=== PATIENT | female | born 1990 | race Caucasian/White ===

== ENCOUNTER 2018-02-04 20:19 | Inpatient (IN) | payer OTHER ==
[~2018-02-04] VITALS: Ht 175.3 cm; Wt 54.4 kg
[2018-02-04] MEDS ORDERED: LOPERAMIDE HCL 2 MG CAPSULE PO PRN ×2 (22:45)
[2018-02-04] MEDS ORDERED: ACETAMINOPHEN 325 MG TABLET PO PRN (22:45)
[2018-02-04] MEDS ORDERED: MAG HYDROX/AL HYDROX/SIMETH 30 ML LIQUID UDC PO PRN (22:45)
[2018-02-04] MEDS ORDERED: LORAZEPAM 2 MG/1 ML VIAL IM PRN (22:45)
[2018-02-04] MEDS ORDERED: DICYCLOMINE HCL 20 MG TABLET PO PRN (22:45)
[2018-02-04] MEDS ORDERED: ONDANSETRON ODT 4 MG TAB.RAPDIS SL PRN (22:45)
[2018-02-04] MEDS ORDERED: diphenhydrAMINE 50 MG CAPSULE PO PRN (22:45)
[2018-02-04] MEDS ORDERED: THIAMINE HCL 200 MG/2 ML VIAL IM ONE (22:45)
[2018-02-04] MEDS ORDERED: NICOTINE 14 MG/24HR PATCH TD PRN (22:45)
[2018-02-04] MEDS ORDERED: MIRALAX 17 GM POWD.PACK PO PRN (22:45)
[2018-02-04] MEDS ORDERED: CLONIDINE HCL 0.1 MG TABLET PO PRN (22:45)
[2018-02-04] MEDS ORDERED: ONDANSETRON 4 MG/2 ML VIAL IM PRN (22:45)
[2018-02-04] MEDS ORDERED: MAGNESIUM HYDROXIDE 30 ML LIQUID UDC PO PRN (22:45)
--- NOTE | 2018-02-04 23:10 | NUR ---
Intake Assessment Pt is a 27 y/o female seen at intake, A&O x 3, and presents with anxiety, sweats/chills, moderate intoxication with flushed face, disheveled hair, anxiety, agitation and restlessness. Pt is ambulatory with unsteady gait. Vital signs: BP 112/82, HR 90, RR 18, T 98.0, SaO2 94%, Pain 0/10. Pt claims NKA, NKDA, NKFA. Pt denies seizure history, SI/HIs. Home meds reviewed, Unit policy on return/destruction of meds on d/c explained on controlled substances may not be returned, Pt verbalized understanding. Pt reports a 4 year and a 1.5 year period of sobriety, last ending approximately 1 year ago, with last week consuming 750 mls wine/Vodka and 1mg Xanax PO per day. Pt claims Hx of depression, anxiety, panic disorder , ADD, and chronic UTIs. Educated pt on rules and policies of the unit including handling of contraband and taking vital signs Q4H. Will continue care of patient upon arrival on unit.
[2018-02-04 23:19] LABS: BASOPHILS % (AUTO) 0.4 % (0.0-2.0); EOSINOPHILS % (AUTO) 0.4 % (0.0-7.0); HEMATOCRIT 46.3 % (31.2-41.9); HEMOGLOBIN 16.3 g/dL (10.9-14.3); LYMPHOCYTES # (AUTO) 1.2 K/uL (20.0-40.0); LYMPHOCYTES % (AUTO) 18.7 % (20.5-51.5); MEAN CORPUSCULAR HEMOGLOBIN 32.6 uug (24.7-32.8); MEAN CORPUSCULAR HGB CONC 35 g/dL (32.3-35.6); MEAN CORPUSCULAR VOLUME 92.9 fL (75.5-95.3); MONOCYTES # (AUTO) 0.6 K/uL (2.0-10.0); NEUTROPHILS # (AUTO) 4.4 K/uL (1.8-8.9); NEUTROPHILS % (AUTO) 70.5 % (38.5-71.5); PLATELET COUNT (AUTO) 238 K/uL (179-408); RED BLOOD CELL COUNT(AUTO) 4.99 MIL/uL (3.63-4.92); WHITE BLOOD COUNT (AUTO) 6.2 K/uL (3.8-11.8)
[2018-02-04 23:35] LABS: BILIRUBIN,TOTAL 0.6 mg/dL (0.2-1.0); CREATININE 0.9 mg/dL (0.6-1.3); POTASSIUM 4.8 mmol/L (3.5-5.1)
[2018-02-04 23:43] LABS: THYROID STIMULATING HORMONE 1.426 mIU/mL (0.358-3.740)
[2018-02-05] VITALS: BP 111/81
--- NOTE | 2018-02-05 | NUR ---
Admission Note Received on unit 23:28 Pt is a 27 y/o female who is being admitted for medically supervised withdrawal/detox from ETOH and Xanax. The patient is intoxicated and is not currently experiencing withdrawal. Pt appears disheveled and unkempt. Pt has a depressed, worried/sad mood, eye contact avoidant at times. She is A&O x 4 with low speech, appears lethargic. Eye contact is intermittent and avoidant. Pt is disheveled. Pt denies a hx of withdrawal induced seizures. VSs on unit are BP 111/81, HR 87, RR 18, T 97.7 and SaO2 94%. HR is regular, RR even and nonlabored, lung sounds clear in all quadrants, bowel sounds active all quadrants Pt states current substance use as follows: 1.ETOH: 750 mls mostly wine, sometimes Vodka, per day PO for the past week. Pt states she first drank at age 13 in 2003. Last ingested approximately 2130 on 02/04/18 2.Xanax: 1mg/day PO for the past year, last ingested approximately 2130 on 02/04/18. Pt states she has NKDA, wishes to be a full code, and follows a regular diet at home. Previous Medical Hx includes: 1.ADD: dx [address] Washington [place], last seen 12/2017 for evaluation. 2.Anxiety: dx [address] Washington [place], last seen 12/2017 for evaluation. 3.Panic disorder: dx [address] Washington [place], last seen 12/2017 for evaluation. Hospitalized in 2005. 4.Chronic UTIs: Diagnose in 1993 at age 3, last seen approximately 01/2017 for evaluation. Home medications listed include: 1.Xanax, 1mg daily PO For chronic panic attacks. 2.Adderal, 2mg daily PO for ADD. 3.Gabapentin 600mg daily PO for anxiety. 4.Trazadone 50mg daily PO for insomnia. She states she is seeking treatment today because her addiction is not serving her. Pt states her father, now at age 60 of [place], was probably and alcoholic, but functional. She has accumulated some sober time prior, with 4 years sober her longest period, and ending 1.5 years clean 1 year ago. 5 years ago she spent 45 days at [facility] in approximately 2012. Over the past year she has with her in 04/2017, changed jobs, and lost a very good friend to . She states she does have support from family and friends. Pt oriented to room and educated patient about smoking and unit rules, how to use call light, pt verbalized understanding. Safety measures in place, side rails up x 2 with padding, bed locked and in lowest position, Call light within reach. Admitting orders have been places.
[2018-02-05] MEDS ORDERED: DEXT10TA19 PO (00:02)
[2018-02-05] MEDS ORDERED: GABA600T2 PO (00:02)
[2018-02-05] MEDS ORDERED: TETR15DR97 OP (00:02)
[2018-02-05] MEDS ORDERED: ALPR0.25 PO (00:02)
[2018-02-05] MEDS ORDERED: ONDA4TAB11 PO (00:02)
[2018-02-05] MEDS ORDERED: TRAZ-144 PO (00:02)
[2018-02-05 01:05] LABS: *URINE HCG, QUAL NEGATIVE (NEGATIVE)
[2018-02-05 01:13] LABS: *AMPHETAMINE, URINE NEGATIVE (NEGATIVE); *BARBITURATE, URINE NEGATIVE (NEGATIVE); *CANNABINOID, URINE NEGATIVE (NEGATIVE); *COCCAINE, URINE NEGATIVE (NEGATIVE); *OPIATE, URINE NEGATIVE (NEGATIVE); *PHENCYCLIDINE SCREEN,URINE NEGATIVE (NEGATIVE)
[2018-02-05] MEDS ORDERED: TRAZODONE 50 MG TABLET PO ONE (01:15)
[2018-02-05] MEDS ORDERED: GABAPENTIN 300 MG CAPSULE PO ONE (01:15)
[2018-02-05] MEDS: LORAZEPAM 1 MG TABLET PO PRN ×3 (01:30→20:36)
--- NOTE | 2018-02-05 01:30 | NUR ---
PRN Med Ativan 2mg PO given for CIWA of 17. Will continue to monitor, reassessing in 1 hour, and promptly attending to all pt needs.
--- NOTE | 2018-02-05 01:30 | NUR ---
PRN Med Nicotine Gum 4mg PO given for
[2018-02-05] MEDS: NICOTINE POLACRILEX 4 MG GUM-PK OF TEN BC PRN ×4 (01:37→20:36)
--- NOTE | 2018-02-05 01:37 | NUR ---
PRN Med Reassessment Nicotine Gum 4mg PO given 1 hour prior for temporary smoking cessation. At present patient sleeping, RR 14, even and nonlabore. Med effective
--- NOTE | 2018-02-05 01:37 | NUR ---
PRN Med Nicotine Gum 4mg PO given for temporary smoking cessation. Will continue to monitor, promptly attending to all pt needs.
--- NOTE | 2018-02-05 02:30 | NUR ---
PRN Med Reassessment Ativan 2mg PO given 1 hour prior for CIWA 17. At present patient sleeping, RR 14 even and nonlabored. Med effective.
--- NOTE | 2018-02-05 04:00 | NUR ---
VS's CIWA Deferred 0400 VS's and CIWA deferred r/t pt sleeping/refused. RR 14, even and nonlabored. Will continue to monitor patient for shift until endorsement, promptly attending to all pt needs.
--- NOTE | 2018-02-05 07:41 | NUR ---
Start of shift note; Received report from night nurse. Patient 27 year old female admitted on 02/04/18 for ETOH/Benzodiazepine withdrawals. Patient was placed on PRN Ativan. Patient is currently asleep with respirations of 18. Patient received PRN Ativan and PRN Nicotine gum, noted to be effective. All safety measures secured. Will continue to monitor patient.
--- NOTE | 2018-02-05 07:43 | NUR ---
End of Shift Pt is a 27 y/o female admitted 02/04/18 for medically managed withdrawal/detox from ETOH, with Xanax, and Adderal . PRNs for shift Included Nicotine Gum 4mg PO and Ativan 2mg PO for a CIWA of 15 at 20:00. Pt slept for 4 hours, had 1091 input, and 1 void with 0 BMs Will continue to monitor pt until endorsement, promptly attending to all pt needs.
[2018-02-05 08:00] VITALS: BP 103/67
[2018-02-05] MEDS: THIAMINE HCL 100 MG TABLET PO SCH (08:36)
[2018-02-05] MEDS: FOLIC ACID 1 MG TABLET PO SCH (08:36)
[2018-02-05] MEDS: MULTIVITAMINS,THERAPEUTIC TABLET PO SCH (08:36)
[2018-02-05] MEDS: GABAPENTIN 300 MG CAPSULE PO SCH ×3 (08:36→20:36)
--- NOTE | 2018-02-05 08:36 | NUR ---
PRN MEDICATION; Patient is AOX4, complaining of nausea, stomach cramps, sweats and anxiety. PRN Zofran 4mg ODT given for nausea. Will continue to monitor patient for effectiveness of medication. Educated patient regarding the importance of compliance to treatment and medication regime, patient verbalized understanding. Will continue to monitor patient.
[2018-02-05] MEDS ORDERED: TUBERCULIN,PURIF.PROT.DERIV. 5 TU/0.1 ML TEST ID ONE (09:00)
--- NOTE | 2018-02-05 09:36 | NUR ---
Re-assessment; Patient denies nausea at this time. PRN medication noted to be effective.
[2018-02-05] MEDS: IBUPROFEN 400 MG TABLET PO PRN ×2 (11:13→20:36)
--- NOTE | 2018-02-05 11:16 | NUR ---
PRN medications; Patient is complaining of generalized pain, increased anxiety, agitation, diaphoresis, headache and tremors. PRN Ativan 1mg PO give for CIWA score of 9, Motrin 400mg PO given for pain rated 6/10. Patient also requested for Nicotine gum, given as ordered. Educated patient regarding the importance not smoking cigarette d/t the possibility of nicotine toxicity, patient verbalized understanding. Will continue to monitor patient.
[2018-02-05 12:00] VITALS: BP 121/82
--- NOTE | 2018-02-05 12:16 | NUR ---
Re-assessment; Patient current CIWA score is 8, patient denies pain at this time. PRN Ativan and PRN Motrin noted to be effective.
[2018-02-05 16:00] VITALS: BP 115/74
--- NOTE | 2018-02-05 18:32 | NUR ---
End of shift note; Patient is AOX4, patient appears anxious complaining of stomach cramps and diaphoresis. Patient remained compliant with treatment plan and medication regime. Patient participated in group therapy and activities. Patient's last CIWA score is 7 at 1600. All safety measures secured. Met all needs.
[2018-02-05] MEDS ORDERED: IBUP-1953 PO (19:05)
[2018-02-05] MEDS ORDERED: CLON0.1T14 PO (19:05)
[2018-02-05] MEDS ORDERED: GABA-534 PO (19:05)
--- NOTE | 2018-02-05 19:30 | NUR ---
START OF SHIFT Pt is a 27 y/o male admitted on 02/04/18 for ETOH and benzo withdrawal. Pt has PRN Ativan available for withdrawal S/S. Last CIWA 7 and PRN Ativan 1 mg, Motrin, Zofran and Nicotine gum x 2 administered during day shift. Upon assessment pt presents with anxiety, restlessness, flushed skin, sweats, flat affect, headache 5/10, disheveled appearance, difficulty falling and staying asleep, unkempt room, dysphoria, anhedonia and is isolative. Pt requests Nicotene gum for cravings. Medications due. Safety measures in place. Call light within reach. Will continue to monitor.
[2018-02-05 20:00] VITALS: BP 117/81
[2018-02-05] MEDS: TRAZODONE 50 MG TABLET PO SCH (20:36)
--- NOTE | 2018-02-05 20:36 | NUR ---
PRN ATIVAN 2 MG, BENTYL, MOTRIN AND NICOTINE GUM ADMINISTERED CIWA 13, pt presents with anxiety, stomach cramps, agitation, restlessness, flushed skin, sweats, headache 5/10. Pt also requests Nicotine gum for cravings. Safety measures in place. Call light within reach. Will continue to monitor.
--- NOTE | 2018-02-05 21:36 | NUR ---
PRN ATIVAN 2 MG, BENTYL AND MOTRIN REASSESSMENT Pt laying in bed with eyes closed, medications noted effective. Respirations even and unlabored. Safety measures in place. Call light within reach. Will continue to monitor.
--- NOTE | 2018-02-06 | NUR ---
CIWA DEFERRED AND VITALS REFUSED Pt laying in bed with eyes closed, CIWA deferred, to be assessed when pt is awake per orders. Vitals refused. Respirations even and unlabored. Safety measures in place. Call light within reach. Will continue to monitor.
--- NOTE | 2018-02-06 07:09 | NUR ---
END OF SHIFT Pt is a 27 y/o male admitted on 02/04/18 for ETOH and benzo withdrawal. Pt had PRN Ativan available for withdrawal S/S. Pt presented with anxiety, restlessness, flushed skin, sweats, flat affect, headache 5/10, disheveled appearance, difficulty falling and staying asleep, stomach cramps, unkempt room, dysphoria, anhedonia and is isolative. Scheduled medications and PRN Ativan 2 mg, Bentyl, Motrin and Nicotine gum administered, effective in S/S of withdrawal as verbalized by pt. Last CIWA 13. Pt slept 9 hours. Intake 2000 ml, void x 2, stool x 0. Safety measures in place. Call light within reach. Pts needs have been met. Endorsed to day shift nurse.
[2018-02-06 07:10] LABS: HEPATITIS B SURFACE AG Negative (Negative)
--- NOTE | 2018-02-06 07:30 | NUR ---
START OF SHIFT Pt 27 y/o female admitted for substance abuse -etoh. Pt received in room on bed with eyes closed resting, but easily arousable to name. Pt alert and oriented to name, place, and time. Perrla. Skin warm and moist to touch. Respirations even and unlabored. Bilateral hand tremors noted. Pt appears disheveled. Clothes scattered throughout the room. Encouraged to maintain hygiene. It was reported that pt slept for 9 hours last night. Last ciwa=13 @1999. Pt is on a prn ativan. Bed on lowest position with side rails x2 up for safety. Call light within reach.
[2018-02-06 08:00] VITALS: BP 96/51
[2018-02-06] MEDS: MULTIVITAMINS,THERAPEUTIC TABLET PO SCH (08:30)
[2018-02-06] MEDS: GABAPENTIN 300 MG CAPSULE PO SCH ×3 (08:30→22:04)
[2018-02-06] MEDS: THIAMINE HCL 100 MG TABLET PO SCH (08:30)
[2018-02-06] MEDS: FOLIC ACID 1 MG TABLET PO SCH (08:30)
[2018-02-06] MEDS: LORAZEPAM 1 MG TABLET PO PRN (08:30)
--- NOTE | 2018-02-06 08:32 | NUR ---
PRN Pt with ciwa=5. Ativan 1 mg po prn per MD order given and tolerated well.
--- NOTE | 2018-02-06 09:32 | NUR ---
PRN EVAL Pt ciwa=2.
[2018-02-06 12:00] VITALS: BP 135/90
[2018-02-06] MEDS: HYDROXYZINE PAMOATE 25 MG CAPSULE PO PRN ×2 (14:28→22:04)
[2018-02-06] MEDS: CLONIDINE HCL 0.1 MG TABLET PO PRN ×2 (14:28→22:04)
--- NOTE | 2018-02-06 14:30 | NUR ---
PRN Pt states feels anxious. Vistaril po prn per MD order given and tolerated well.
--- NOTE | 2018-02-06 14:31 | NUR ---
PRN Pt states feels really anxious. Catapres po prn per MD order given and tolerated well.
--- NOTE | 2018-02-06 15:31 | NUR ---
PRN TC Pt observed in recreational room sitting in group activity.
[2018-02-06 16:00] VITALS: BP 111/81
--- NOTE | 2018-02-06 18:48 | NUR ---
END OF SHIFT Pt 27 y/o female admitted for substance abuse -etoh. Pt alert and oriented to name, place, and time. Perrla. Skin warm and moist to touch. Respirations even and unlabored. Bilateral hand tremors noted. Pt appears disheveled. Food wrappings and empty water bottles scattered throughout the room. Encouraged to maintain hygiene. Pt observed mostly in recreational room throughout the day. Pt was seen by MD. Pt medication compliant and tolerated well. No ASE noted. Ciwa=5@0800, 5@1200, and 5@1600. Pt is scheduled to be discharged tomorrow. Bed on lowest position with side rails x2 up for safety. Call light within reach.
--- NOTE | 2018-02-06 19:15 | NUR ---
Start of Shift Note: Pateint is a 27 y.o female admitted on 02/04/18 for medically supervised withdrawal from ETOH. Patient is alert & oriented x4. Patient currently has no taper and has PRNs available to manage symptoms of withdrawal. Pt is scheduled to be discharge tomorrow. Patient verbalized readiness for discharge. Last CIWA is 5. Pt received PRN Ativan 1mg, Vistaril & Clonidine for anxiety during day shift. Pt continues to present anxiety & irritability. No pain/discomfort noted. Patient remain compliant with medications, treatment and diet regimen. Educated patient of current plan of care for the night and medication regimen. Safety precaution in place. Bed locked in lowest position. Both side rails up. Call light within pt's reach. Will continue to monitor patient.
[2018-02-06 20:00] VITALS: BP 108/77
[2018-02-06] MEDS: TRAZODONE 50 MG TABLET PO SCH (22:04)
[2018-02-06] MEDS: NICOTINE POLACRILEX 4 MG GUM-PK OF TEN BC PRN (22:04)
--- NOTE | 2018-02-06 22:04 | NUR ---
PRN Clonidine/Vistaril/Nicotine gum Patient complains of restlessness & anxiety. Administered PRN Clonidine & Vistaril for anxiety & Nicotine gum for cravings. Will monitor for effectiveness of medication.
--- NOTE | 2018-02-06 23:04 | NUR ---
PRN Reassessment Pt verbalized decreased in anxiety after PRN medication. Pt stated Nicotine gum helped with cravings. Safety measures in place. Will continue to monitor patient.
--- NOTE | 2018-02-07 06:56 | NUR ---
End of Shift Note: Patient is a 27 y.o female admitted on 02/04/18 for medically supervised withdrawal from ETOH. Patient continues to present anxiety & agitation. Pt is scheduled to be discharge to home today. Last CIWA 5. Pt received PRN Clonidine, Vistaril & Nicotine gum and were effective. Non-pharmacological intervention utilized. Continue to closely monitor pt for s/s of withdrawal. Vitals were noted WNL. Pt was encouraged to increased fluid intake. Pt slept for a total of 6 hours. Fluid intake: 2000 ml, Voided 2x with no bowel movement All needs attended & met. Safety measures in place. Will endorse pt to day shift nurse.
--- NOTE | 2018-02-07 07:30 | NUR ---
START OF SHIFT Pt 27 y/o female admitted for substance abuse -etoh. Pt received in room on bed awake watching television. Pt alert and oriented to name, place, and time. Perrla. Skin warm and moist to touch. Respirations even and unlabored. Pt appears disheveled. Clothes scattered throughout the room. Encouraged to maintain hygiene. Pt anxious about discharge this morning. It was reported that pt slept for 6 hours last night. Last ciwa=5 @2100. Pt is scheduled to be discharged today. Bed on lowest position with side rails x2 up for safety. Call light within reach.
[2018-02-07 08:00] VITALS: BP 109/70
[2018-02-07] MEDS: MULTIVITAMINS,THERAPEUTIC TABLET PO SCH (08:04)
[2018-02-07] MEDS: THIAMINE HCL 100 MG TABLET PO SCH (08:04)
[2018-02-07] MEDS: GABAPENTIN 300 MG CAPSULE PO SCH (08:04)
[2018-02-07] MEDS: FOLIC ACID 1 MG TABLET PO SCH (08:04)
--- NOTE | 2018-02-07 08:34 | NUR ---
DISCHARGE Pt 27 y/o female admitted for substance abuse -etoh. Pt alert and oriented to name, place, and time. Perrla. Skin warm and dry to touch. Respirations even and unlabored. No hand tremors noted. VS wnl. Pt denies any SI / HI. No belongings in cassette noted. Pt belongings in cabinet, home medications, prescriptions, and discharge papers packing in pt bag. Pt discharged home. No distress noted.
== END 2018-02-07 08:34 | disposition home or self-care (01) | DRG 895 ==
LOC: SRC 22:12
PROVIDERS: ADMIT Internal Medicine; ATTEND Internal Medicine
PROC: HZ2ZZZZ Detoxification Services for Substance Abuse Treatment (ICD-10-PCS; principal; 2018-02-04)
PROC: HZ31ZZZ Individual Counseling for Substance Abuse Treatment, Behavioral (ICD-10-PCS; 2018-02-05)
PROC: HZ41ZZZ Group Counseling for Substance Abuse Treatment, Behavioral (ICD-10-PCS; 2018-02-06)
DX: F10.230 Alcohol dependence with withdrawal, uncomplicated (principal); K70.10 Alcoholic hepatitis without ascites; F39 Unspecified mood [affective] disorder; Y90.8 Blood alcohol level of 240 mg/100 ml or more; F90.9 Attention-deficit hyperactivity disorder, unspecified type; F17.210 Nicotine dependence, cigarettes, uncomplicated; Z81.1 Family history of alcohol abuse and dependence; F43.10 Post-traumatic stress disorder, unspecified
CPT/HCPCS: 36415; 70030-TC; 80307; 83735; 84443; 84703; 85025; 86592; 86705; 86803; 87340; 87806; A4663; G0480; J3411; Q0162